=== PATIENT | female | born 1970 | race Two or more races ===

== ENCOUNTER → 2017-09-07 | Outpatient (CLI) | payer OTHER ==
[~2017-09-07] VITALS: Ht 121.9 cm; Wt 68.0 kg
[~2017-09-07] MED LIST: AMOX1TAB12 PO; LEVOXYL50 MCG; MAXITROL EYE DRO5 ML OP; SYNTHROID50 MCG; TESSALON PERLE100 M1 PO; TUSSI PRES-B L120 M1 PO; ZYRTEC10 MG PO
== END | disposition home or self-care (01) ==
LOC: PPHC 15:13
DX: R51 Headache (principal)

== ENCOUNTER 2017-09-09 07:52 | Outpatient (CLI) | payer OTHER | END 2017-09-09 08:16 | disposition home or self-care (01) | LOC: RAD 07:52 | DX: M25.512 Pain in left shoulder (principal); M54.2 Cervicalgia ==

== ENCOUNTER 2017-10-31 12:32 | Outpatient (CLI) | payer OTHER | END 2017-10-31 12:37 | disposition home or self-care (01) | LOC: SONOGRAMA 12:32 → MAMO-SONO 14:45 | DX: M75.52 Bursitis of left shoulder (principal) ==

== ENCOUNTER 2017-12-28 07:25 | Outpatient (CLI) | payer OTHER | END 2017-12-28 07:29 | disposition home or self-care (01) | LOC: LAB 07:25 | DX: R30.0 Dysuria (principal) ==

== ENCOUNTER 2018-10-23 14:59 | Outpatient (CLI) | payer OTHER | END 2018-10-23 15:28 | disposition home or self-care (01) | LOC: LAB 14:59 | DX: J11.1 Influenza due to unidentified influenza virus with other respiratory manifestations (principal); J20.0 Acute bronchitis due to Mycoplasma pneumoniae ==

== ENCOUNTER 2019-03-28 14:30 | Outpatient (CLI) | payer OTHER | END 2019-03-28 14:37 | disposition home or self-care (01) | LOC: LAB 14:30 | DX: E03.8 Other specified hypothyroidism (principal) ==

== ENCOUNTER 2019-04-26 06:21 | Outpatient (CLI) | payer OTHER | END 2019-04-26 06:30 | disposition home or self-care (01) | LOC: LAB 06:21 | DX: M06.09 Rheumatoid arthritis without rheumatoid factor, multiple sites (principal); R74.0 Nonspecific elevation of levels of transaminase and lactic acid dehydrogenase [LDH] ==

== ENCOUNTER 2019-05-10 09:49 | Outpatient (CLI) | payer OTHER | END 2019-05-10 15:00 | disposition home or self-care (01) | LOC: LAB 09:49 | DX: N39.0 Urinary tract infection, site not specified (principal) ==

== ENCOUNTER 2019-06-05 07:27 | Outpatient (CLI) | payer OTHER | END 2019-06-05 07:34 | disposition home or self-care (01) | LOC: LAB 07:27 | DX: E03.8 Other specified hypothyroidism (principal) ==

== ENCOUNTER → 2019-06-05 | Outpatient (CLI) | payer OTHER | END | disposition home or self-care (01) | LOC: MAMO-SONO 10:46 | DX: Z12.31 Encounter for screening mammogram for malignant neoplasm of breast (principal); Z87.898 Personal history of other specified conditions; N63.10 Unspecified lump in the right breast, unspecified quadrant; N63.20 Unspecified lump in the left breast, unspecified quadrant; N64.59 Other signs and symptoms in breast; N64.89 Other specified disorders of breast ==

== ENCOUNTER 2019-07-07 08:59 | Outpatient (CLI) | payer OTHER | END 2019-07-07 13:29 | disposition home or self-care (01) | LOC: LAB 08:59 | DX: E03.8 Other specified hypothyroidism (principal) ==

== ENCOUNTER → 2019-07-18 | Outpatient (CLI) | payer OTHER | END | disposition home or self-care (01) | LOC: NUCLEAR 08:18 | DX: M06.4 Inflammatory polyarthropathy (principal); M46.1 Sacroiliitis, not elsewhere classified | CPT/HCPCS: 78315; 78306; A9503 ==

== ENCOUNTER → 2019-09-12 07:10 | Outpatient (CLI) | payer OTHER | END | disposition home or self-care (01) | LOC: LAB 07:10 | DX: E78.49 Other hyperlipidemia (principal); M06.09 Rheumatoid arthritis without rheumatoid factor, multiple sites; M46.1 Sacroiliitis, not elsewhere classified ==

== ENCOUNTER 2019-11-11 05:27 | Emergency (ER) | payer OTHER ==
[~2019-11-11] VITALS: Ht 147.3 cm; Wt 68.0 kg
[2019-11-11] MEDS ORDERED: METROTEXATE (05:34)
[2019-11-11] MEDS ORDERED: SYNTHROID88 MCG (05:34)
[2019-11-11] MEDS ORDERED: FOLIC ACID0.8 M1 (05:34)
[2019-11-11] MEDS ORDERED: ZITHROMAX500 MG PO (11:33)
== END 2019-11-11 11:48 | disposition home or self-care (01) ==
LOC: ER 05:27
DX: R53.81 Other malaise (principal); R06.02 Shortness of breath; R53.83 Other fatigue; B96.0 Mycoplasma pneumoniae [M. pneumoniae] as the cause of diseases classified elsewhere

== ENCOUNTER 2020-01-14 07:38 | Outpatient (CLI) | payer OTHER ==
[~2020-01-14 07:38] MED LIST changes: +FOLIC ACID0.8 M1; +METROTEXATE; +SYNTHROID88 MCG; +ZITHROMAX500 MG PO
== END 2020-01-14 14:18 | disposition home or self-care (01) ==
LOC: LAB 07:38
PROVIDERS: ATTEND General Practice
DX: M25.572 Pain in left ankle and joints of left foot (principal); E03.8 Other specified hypothyroidism; Z00.8 Encounter for other general examination

== ENCOUNTER → 2020-06-10 | Outpatient (CLI) | payer OTHER | END | disposition home or self-care (01) | LOC: MAMO-SONO 13:07 | PROVIDERS: ATTEND Internal Medicine Cardiovascular Disease | DX: D24.1 Benign neoplasm of right breast (principal); D24.2 Benign neoplasm of left breast; Z12.31 Encounter for screening mammogram for malignant neoplasm of breast ==

== ENCOUNTER 2020-07-16 11:00 | Outpatient (CLI) | payer OTHER | END 2020-07-16 18:00 | disposition home or self-care (01) | LOC: PPH VACUNA 11:00 | DX: Z23 Encounter for immunization (principal) ==

== ENCOUNTER → 2021-01-05 08:03 | Outpatient (CLI) | payer OTHER | END | disposition home or self-care (01) | LOC: LAB 08:03 | PROVIDERS: ATTEND Internal Medicine Gastroenterology | DX: Z11.52 Encounter for screening for COVID-19 (principal) ==

== ENCOUNTER → 2021-01-08 06:58 | Outpatient (CLI) | payer OTHER | END | disposition home or self-care (01) | LOC: LAB 06:58 | PROVIDERS: ATTEND Internal Medicine | DX: E11.65 Type 2 diabetes mellitus with hyperglycemia (principal); E03.8 Other specified hypothyroidism; E78.5 Hyperlipidemia, unspecified; I10 Essential (primary) hypertension; E55.9 Vitamin D deficiency, unspecified ==

== ENCOUNTER 2021-01-19 06:31 | Outpatient (CLI) | payer OTHER | END 2021-01-19 06:32 | disposition home or self-care (01) | LOC: LAB 06:31 | PROVIDERS: ATTEND General Practice | DX: N39.0 Urinary tract infection, site not specified (principal) ==

== ENCOUNTER → 2021-01-22 | Outpatient (CLI) | payer OTHER | END | disposition home or self-care (01) | LOC: SONOGRAMA 10:02 | PROVIDERS: ATTEND Internal Medicine | DX: E04.1 Nontoxic single thyroid nodule (principal); E07.9 Disorder of thyroid, unspecified ==

== ENCOUNTER → 2021-03-19 13:24 | Outpatient (CLI) | payer OTHER | END | disposition home or self-care (01) | LOC: LAB 13:24 | PROVIDERS: ATTEND Emergency Medicine Pediatric Emergency Medicine | DX: Z03.818 Encounter for observation for suspected exposure to other biological agents ruled out (principal) ==

== ENCOUNTER 2021-04-27 12:59 | Outpatient (CLI) | payer OTHER | END 2021-04-27 13:05 | disposition home or self-care (01) | LOC: LAB 12:59 | PROVIDERS: ATTEND Internal Medicine Cardiovascular Disease | DX: R06.09 Other forms of dyspnea (principal); I10 Essential (primary) hypertension; R73.09 Other abnormal glucose; E55.9 Vitamin D deficiency, unspecified; E78.49 Other hyperlipidemia; E03.8 Other specified hypothyroidism; D64.89 Other specified anemias; N39.0 Urinary tract infection, site not specified ==

== ENCOUNTER → 2021-05-11 | Outpatient (CLI) | payer OTHER | END | disposition home or self-care (01) | LOC: PPH VACUNA 09:08 | PROVIDERS: ATTEND Emergency Medicine Pediatric Emergency Medicine | DX: Z23 Encounter for immunization (principal) ==

== ENCOUNTER → 2021-05-28 13:10 | Outpatient (CLI) | payer OTHER | END | disposition home or self-care (01) | LOC: LAB 13:10 | PROVIDERS: ATTEND Plastic Surgery | DX: Z20.828 Contact with and (suspected) exposure to other viral communicable diseases (principal); Z03.818 Encounter for observation for suspected exposure to other biological agents ruled out ==

== ENCOUNTER → 2021-07-01 11:13 | Outpatient (CLI) | payer OTHER | END | disposition home or self-care (01) | LOC: LAB 11:13 | PROVIDERS: ATTEND Internal Medicine | DX: E03.8 Other specified hypothyroidism (principal); E55.9 Vitamin D deficiency, unspecified; I10 Essential (primary) hypertension; E78.2 Mixed hyperlipidemia ==

== ENCOUNTER 2021-07-23 11:58 | Outpatient (CLI) | payer OTHER | END 2021-07-23 16:43 | disposition home or self-care (01) | LOC: LAB 11:58 | PROVIDERS: ATTEND Emergency Medicine Pediatric Emergency Medicine | DX: Z03.818 Encounter for observation for suspected exposure to other biological agents ruled out (principal) ==

== ENCOUNTER 2021-11-10 07:48 | Outpatient (CLI) | payer OTHER | END 2021-11-10 14:05 | disposition home or self-care (01) | LOC: MAMO-SONO 07:48 | PROVIDERS: ATTEND General Practice | DX: N64.4 Mastodynia (principal); M79.641 Pain in right hand; M25.531 Pain in right wrist ==

== ENCOUNTER → 2024-02-10 06:59 | Outpatient (CLI) | payer OTHER ==
[2024-02-10 08:41] LABS: HEMATOCRIT 34.2 % (36.0-45.00); MEAN CORPUSCULAR HEMOGLOBIN 32.6 pg (27.00-32.0); PLATELET COUNT 339 K/uL (150-450); RED BLOOD COUNT 3.67 M/uL (4.00-6.00); RED CELL DISTRIBUTION WIDTH 13.2 % (11.5-14.5)
[2024-02-10 09:48] LABS: ALBUMIN 3.6 gm/dL (3.4-5.0); BILIRUBIN TOTAL 0.37 mg/dL (0.3-1.2); CALCIUM 8.6 mg/dL (8.5-10.1); CHOL HDL RATIO 5.1 (0-5.0); CREATININE SERUM 0.74 mg/dL (0.55-1.02); GFR 81.78; GLOBULINA 3.7 G/DL (2.4-3.5); POTASSIUM 4.14 mEq/L (3.5-5.1); T4 FREE 0.84 NG/ML (0.76-1.46); TOTAL PROTEIN 7.3 gm/dL (6.4-8.2)
[2024-02-10 09:49] LABS: TSH 6.17 uIU/mL (0.358-3.74)
[2024-02-10 11:48] LABS: PH,URINE 5.5 (5.0-8.0); URINE APPEARANCE Clear; URINE BACTERIA 27.7 uL (0.0-1933); URINE BILIRRUBIN Negative (NEGATIVE); URINE BLOOD Small; URINE COLOR Yellow; URINE EPITHELIAL CELLS 6.4 uL (0.0-38.8); URINE GLUCOSE Negative (NEGATIVE); URINE LEUKOCYTE Negative; URINE NITRATE Negative; URINE PROTEIN Negative (NEGATIVE); URINE RBC 6.2 uL (0.0-20.8); URINE UROBILINOGEN 0.2 E.U./dl; URINE WBC 3.7 uL (0.0-23.2)
== END | disposition home or self-care (01) ==
LOC: LAB 06:59
PROVIDERS: ATTEND Internal Medicine
DX: E55.9 Vitamin D deficiency, unspecified (principal); E78.2 Mixed hyperlipidemia; R89.4 Abnormal immunological findings in specimens from other organs, systems and tissues; L25.9 Unspecified contact dermatitis, unspecified cause; R73.03 Prediabetes; E03.8 Other specified hypothyroidism

== ENCOUNTER 2024-08-30 05:52 | Day surgery (SDC) | payer OTHER ==
[2024-08-22 07:47] LABS: HEMATOCRIT 35.9 % (36.0-45.00); HEMOGLOBIN 12.3 g/dL (12.0-15.00); MEAN CELL VOLUME 90.4 fL (80.00-100.00); MEAN CORPUSCULAR HGB CONC 34.3 g/dl (32.0-36.0); PLATELET COUNT 334 K/uL (150-450); RED BLOOD COUNT 3.97 M/uL (4.00-6.00); RED CELL DISTRIBUTION WIDTH 13.6 % (11.5-14.5)
[2024-08-22 07:58] LABS: PARTIAL THROMBOPLASTIN TIME 26.7 SECONDS (22.0-34.0); PROTHROMBIN TIME 10.9 SECONDS (9.0-11.5)
[2024-08-22 08:48] LABS: CALCIUM 8.8 mg/dL (8.5-10.1); CREATININE SERUM 0.65 mg/dL (0.55-1.02); GFR 94.99; POTASSIUM 4.38 mEq/L (3.5-5.1)
[2024-08-22 09:22] LABS: URINE APPEARANCE Clear; URINE BILIRRUBIN Negative (NEGATIVE); URINE BLOOD Negative; URINE COLOR Yellow; URINE GLUCOSE Negative (NEGATIVE); URINE KETONE Negative (NEGATIVE); URINE LEUKOCYTE Negative; URINE NITRATE Negative; URINE PROTEIN Negative (NEGATIVE); URINE UROBILINOGEN 0.2 E.U./dl
[2024-08-22 09:28] LABS: URINE RBC 6.9 uL (0.0-20.8)
[2024-08-22 09:32] LABS: URINE WBC 1.1 uL (0.0-23.2)
[2024-08-30] MEDS ORDERED: CLINDAMYCIN PHOSPHATE 150 MG/ML (900mg) ONE (06:46)
[2024-08-30] MEDS ORDERED: GENTAMICIN SULFATE 40 MG/ML VIAL ONE ×2 (06:47→08:07)
[2024-08-30] MEDS ORDERED: POVIDONE-IODINE SCRUB 118 ML BOTT TOP ONE ×2 (06:47→08:08)
[2024-08-30] MEDS ORDERED: BUPIVACAINE HCL/MPF 0.5% 30ML VIAL ONE ×2 (06:47→08:07)
[2024-08-30] MEDS ORDERED: POVIDONE-IODINE 118 ML BOTT TOP ONE ×2 (06:47→08:08)
[2024-08-30] MEDS ORDERED: CEFAZOLIN SODIUM 1,000 MG VIAL ONE ×2 (06:48→08:08)
[2024-08-30] MEDS ORDERED: EPINEPHRINE HCL/PF 1 MG/ML AMPUL ONE (08:07)
[2024-08-30] MEDS ORDERED: MORPHINE SULFATE 4 MG/ML VIAL IV PRN (10:00)
[2024-08-30] MEDS ORDERED: ONDANSETRON HCL 2 MG/ML VIAL IV PRN (10:00)
[2024-08-30] MEDS ORDERED: MORPHINE SULFATE 4 MG/ML VIAL IV ONE ×2 (10:45→11:30)
== END 2024-08-30 14:20 | disposition home or self-care (01) ==
LOC: CIR.AMB 05:52
PROVIDERS: ATTEND Plastic Surgery
DX: N65.1 Disproportion of reconstructed breast (principal); Z90.13 Acquired absence of bilateral breasts and nipples; E03.8 Other specified hypothyroidism; Z91.040 Latex allergy status; C50.911 Malignant neoplasm of unspecified site of right female breast; C50.912 Malignant neoplasm of unspecified site of left female breast

== ENCOUNTER 2025-01-11 09:30 | Outpatient (CLI) | payer OTHER ==
[2025-01-11 08:09] LABS: BASO % 0.4 % (0.1-1.2); EOS # 0.12 (0.04-0.54); EOS % 2.6 % (0.7-7.0); HEMATOCRIT 35.6 % (34.1-44.9); HEMOGLOBIN 12.2 g/dL (11.2-15.7); LYMPH # 1.65 (1.18-3.74); LYMPH % 35.3 % (19.3-53.1); MEAN CORPUSCULAR HEMOGLOBIN 30.1 pg (25.6-32.2); MONO # 0.41 (0.24-0.82); MONO % 8.8 % (4.7-12.5); NEUT # 2.46 (1.56-6.13); NEUT % 52.7 % (34.0-71.1); PLATELET COUNT 342 K/uL (163-369); RED BLOOD COUNT 4.05 M/uL (3.93-5.22)
[2025-01-11 08:57] LABS: ALBUMIN 3.8 gm/dL (3.4-5.0); BILIRUBIN TOTAL 0.37 mg/dL (0.3-1.2); CALCIUM 9.1 mg/dL (8.5-10.1); CHOL HDL RATIO 4.2 (0-5.0); CREATININE SERUM 0.75 mg/dL (0.55-1.02); GFR 80.23; GLOBULINA 3.6 G/DL (2.4-3.5); POTASSIUM 4.49 mEq/L (3.5-5.1); TOTAL PROTEIN 7.4 gm/dL (6.4-8.2); TSH 0.647 uIU/mL (0.358-3.74)
== END 2025-01-11 09:31 | disposition home or self-care (01) ==
LOC: LAB 09:30
PROVIDERS: ATTEND Internal Medicine Cardiovascular Disease
DX: D64.9 Anemia, unspecified (principal); R10.9 Unspecified abdominal pain; E03.9 Hypothyroidism, unspecified; E78.5 Hyperlipidemia, unspecified; R07.9 Chest pain, unspecified; E55.9 Vitamin D deficiency, unspecified; R73.09 Other abnormal glucose; E78.2 Mixed hyperlipidemia; Z13.6 Encounter for screening for cardiovascular disorders

== ENCOUNTER → 2025-03-11 07:47 | Outpatient (CLI) | payer OTHER ==
[2025-03-12 07:14] LABS: BASO % 0.6 % (0.1-1.2); EOS # 0.13 (0.04-0.54); EOS % 2.5 % (0.7-7.0); LYMPH # 2.00 (1.18-3.74); LYMPH % 38.7 % (19.3-53.1); MEAN PLATELET VOLUME 10.30 fl (9.4-12.4); MONO # 0.48 (0.24-0.82); MONO % 9.3 % (4.7-12.5); NEUT # 2.52 (1.56-6.13); NEUT % 48.7 % (34.0-71.1); RED CELL DISTRIBUTION WIDTH 12.0 % (11.6-14.4)
[2025-03-12 08:07] LABS: ALT/SGPT 26.0 U/L (12-78); AST/SGOT 14.0 U/L (15-37); BILIRUBIN TOTAL 0.37 mg/dL (0.3-1.2); BUN CREA RATIO 20.0 (7.0-25.0); CHOL HDL RATIO 5.1 (0-5.0); CREATININE SERUM 0.71 mg/dL (0.55-1.02); GFR 85.46; GLOBULINA 3.7 G/DL (2.4-3.5); GLUCOSE FASTING 89.0 mg/dL (65-100); HDL 42.0 mg/dl (40-60); LDL 125.0 mg/dl (0-130); OSMOLALITY SERUM 279.0 MOSM/KG (275-295); T4 FREE 0.81 NG/ML (0.76-1.46); TSH 1.39 uIU/mL (0.358-3.74); VLDL 46.0 (0-39)
[2025-03-12 11:56] LABS: URINE APPEARANCE Clear; URINE BILIRRUBIN Negative (NEGATIVE); URINE BLOOD Negative; URINE COLOR Yellow; URINE GLUCOSE Negative (NEGATIVE); URINE KETONE Negative (NEGATIVE); URINE LEUKOCYTE Negative; URINE NITRATE Negative; URINE PROTEIN Negative (NEGATIVE); URINE UROBILINOGEN 0.2 E.U./dl
[2025-03-12 12:01] LABS: URINE BACTERIA 346.7 uL (0.0-1933); URINE EPITHELIAL CELLS 35.3 uL (0.0-38.8); URINE RBC 4.9 uL (0.0-20.8); URINE WBC 6.6 uL (0.0-23.2)
[2025-03-12 12:08] LABS: URINE CAST 0.43 uL (0.0-1.40)
== END | disposition home or self-care (01) ==
LOC: LAB 07:47
PROVIDERS: ATTEND Internal Medicine
DX: K29.30 Chronic superficial gastritis without bleeding (principal); E55.9 Vitamin D deficiency, unspecified; E78.2 Mixed hyperlipidemia; R73.03 Prediabetes; E03.8 Other specified hypothyroidism

== ENCOUNTER 2025-03-11 09:46 | Outpatient (CLI) | payer OTHER ==
[2025-03-13 05:07] LABS: HEPATITIS A ANTIBODY IGG Negative (Negative); HEPATITIS B SURFACE ANTIBODY Reactive (.); HEPATITIS C VIRUS ANTIBODY Non Reactive (Non Reactive)
== END 2025-03-11 12:53 | disposition home or self-care (01) ==
LOC: LAB 09:46
DX: A64 Unspecified sexually transmitted disease (principal); B19.9 Unspecified viral hepatitis without hepatic coma